=== PATIENT | female | born 1950 | race Caucasian/White ===

== ENCOUNTER 2023-06-20 13:05 | Emergency (ER) | payer MEDICARE ==
[~2023-06-20] VITALS: Ht 172.7 cm; Wt 113.4 kg
[2023-06-20] MEDS ORDERED: INTUBATION KIT MC ONE (13:21)
[2023-06-20] MEDS ORDERED: NOREPINEPHRINE 4 MG/4 ML VIAL IV ONE (13:28)
[2023-06-20 13:30] VITALS: TEMP 98
[2023-06-20] MEDS ORDERED: NOREPINEPHRINE 4 MG in DEXTROSE 5% 250 ML IV ONE (13:40)
[2023-06-20] MEDS ORDERED: NACL 0.9% 1,000 ML IV SCH (13:40)
[2023-06-20 13:45] VITALS: BP 40/23; PULSE 45; PULSE 81; RESP 18; RESP 8; O2SAT 96; O2SAT 98
[2023-06-20] MEDS ORDERED: VASOPRESSIN 40 UNITS in NACL 0.9% 250 ML IV PRN (14:05)
[2023-06-20] MEDS ORDERED: NOREPINEPHRINE 8 MG in DEXTROSE 5% 250 ML IV PRN (14:30)
[2023-06-20] MEDS ORDERED: TENECTEPLASE 50 MG KIT IV ONE (14:51)
[2023-06-20] MEDS ORDERED: ALTEPLASE 100 MG IV ONE (14:54)
== END 2023-06-20 15:05 ==
LOC: MED 13:05
DX: I46.9 Cardiac arrest, cause unspecified (principal); I50.9 Heart failure, unspecified; R00.1 Bradycardia, unspecified; Z88.8 Allergy status to other drugs, medicaments and biological substances; Z79.899 Other long term (current) drug therapy
CPT/HCPCS: 31500; 71045; 92950; 94770; 96365; 96366; 99291; J3490; J2997; J3101; J7030; J7060